=== PATIENT | male | born 1960 | race Caucasian/White ===

== ENCOUNTER → 2020-07-06 | Outpatient (CLI) | payer OTHER ==
[~2020-07-06] MED LIST: ALBU.083IS IH; ALBU90OI INH; ASPI325 PO; ATEN25 PO; CYCL10 PO; DOXY100 PO; FLUSAL2505 IH; HYDACE5 PO; IBUP400 PO; METHADONE; NAPR500 PO; OXYC5 PO; PRED20 PO; PROM25 PO; PROM25S PR; RXONDA4ODT MM
[2020-07-08 11:40] LABS: Antinuclear Antibody Screen Negative (Negative)
[2020-07-08 13:11] LABS: LYME IGG/IGM AB <0.91 ISR (0.00-0.90)
== END | disposition home or self-care (01) ==
LOC: LAB EV 14:32 → LAB SHORT 14:32
PROVIDERS: Physician Assistant Medical
DX: M25.50 Pain in unspecified joint (principal)
CPT/HCPCS: 85651; 86038; 86140; 86618

== ENCOUNTER 2023-07-05 19:28 | Inpatient (IN) | payer OTHER ==
[~2023-07-05] VITALS: Ht 175.3 cm; Wt 90.3 kg
[~2023-07-05 19:28] MED LIST changes: -ALBU90OI6 INH; -DOLOPHINE HCL10 MG PO; -LISI20 PO; -LYRICA100 M1 PT; -METH10; -PREG100; -Prednisone10 MG PO; -TAMS.4ER PO
[2023-07-05 21:46] LABS: Source, Urine Clean Catch
[2023-07-05 22:05] LABS: Appearance, Urine Clear (Clear); Bilirubin, Urine Neg (Neg); Blood, Urine Neg (Neg); Color, Urine Yellow (P-Yellow); Glucose Qualitative, Urine Neg (Neg); Ketones, Urine Neg (Neg); Leukocyte Esterase, Urine 1+ (Neg); Nitrite, Urine Neg (Neg); Protein, Urine 2+ (Neg); Specific Gravity, Urine 1.025 (1.003-1.022); Urobilinogen, Urine NORM (Normal)
[2023-07-05 22:07] LABS: Bacteria Not Seen /hpf; Hyaline Casts 25-50 /lpf (0-2); Red Blood Cells, Urine Not Seen /hpf (0-2); Squamous Epithelial Cells Not Seen /hpf (Few); White Blood Cells, Urine 0-2 /hpf (0-5)
[2023-07-05 22:09] LABS: U Amphetamine Screen Not Detected; U Barbituate Screen Not Detected; U Benzodiazapine Screen Not Detected; U Buprenorphine Screen Not Detected; U Cannabinoids Screen Not Detected; U Cocaine Screen Not Detected; U Methadone Screen DETECTED; U Methamphetamine Screen Not Detected; U Opiates Screen Not Detected; U Oxycodone Screen Not Detected; U Phencyclidine Screen Not Detected; U Propoxyphene Screen Not Detected
[2023-07-06 04:08] VITALS: BP 104/59
--- NOTE | 2023-07-06 04:17 | NUR ---
ER ADMIT 0350: RECEIVED REPORT FROM AUTO SUSPENSION AND STEERING MECHANIC. 0405: RECEIVED PT FROM ER VIA W/C. PT PLACED SELF ON BED. VS OBTAINED. VSS. 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 SET PT UP FOR SHOWER. PT SHOWERED. IS A&O X 4. PLEASANT & COOPERATIVE WITH ALL CARE. IS STEADY & STRONG ON HIS FEET. ADMIT DONE.
--- NOTE | 2023-07-06 05:38 | NUR ---
SHIFT SUMMARY HAS RESTED QUIETLY SINCE ADMISSION WITH EYES CLOSED, RESP EVEN & UNLABORED. LR INFUSING PER MD ORDER. DENIES COMPLAINTS. IS PLEASANT & COOPERATIVE WITH ALL CARE. BED IN LOW POSITION, CALL LIGHT WITHIN REACH.
[2023-07-06 07:00] LABS: Bun/Creatinine Ratio 19.2 (12.0-20.0); Calcium, Blood 8.9 mg/dL (8.5-10.1); Creatinine, Blood 3.91 mg/dL (0.60-1.20); Potassium, Blood 3.7 mmol/L (3.5-5.5)
[2023-07-06 07:11] VITALS: BP 105/63
[2023-07-06] MEDS ORDERED: ALBU90OI6 INH (09:22)
[2023-07-06] MEDS ORDERED: Prednisone10 MG PO (09:24)
[2023-07-06] MEDS ORDERED: LISI20 PO (09:26)
--- NOTE | 2023-07-06 11:00 | NUR ---
PATIENT FEELING THE NEED TO URINATE EVEN AFTER URINATION. 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 STATES HE THINKS HE GOT HEAT STROKE OR SOMETHING 2 WEEKS AGO AND THATS WHEN HIS CRAMPS IN HIS LEGS AND CHEST STARTED BUT HAVE BEEN WORSENING OVER PAST 2 WEEKS. DRINKS LOTS OF WATER WHILE WORKING. STARTED AT SALT, POTASSIUM SUPPLEMENT LAST WEEK DUE TO ALL THE SWEATING. STATES HIS SHIRT WILL BE COVERED IN WHITE STUFF AFTER WORKING AND SWEATING ALL DAY AND WHEN THE SWEAT DRIES. PATIENT WITH CONTINUED CRAMPING IN LEGS TODAY
[2023-07-06 15:35] VITALS: BP 109/63
[2023-07-06] MEDS ORDERED: PREG100 (16:47)
[2023-07-06] MEDS ORDERED: LYRICA100 M1 PT (16:48)
[2023-07-06] MEDS ORDERED: METH10 (16:55)
[2023-07-06] MEDS ORDERED: DOLOPHINE HCL10 MG PO (16:57)
[2023-07-06 19:26] VITALS: BP 143/91
--- NOTE | 2023-07-06 20:01 | NUR ---
MD CALL MR JOHNSTON IS PACING, C/O ANXIETY, REQUESTING ANXIETY MEDICATION. C/O FEELING LIKE HE WANTS TO THROW UP DESPITE RECENT ZOFRAN. 02/08 RLQ PAIN FOR MORE THAN A WEEK. DR COTE CALLED AND NOTIFIED. ORDER FOR HYDROXYZINE 25MG PO Q6HRS PRN ANXIETY AND OK TO GIVE MOM READ BACK AND ENTERED INTO [facility].
--- NOTE | 2023-07-06 20:06 | NUR ---
SHIFT SUMMARY PATIENT WITH LEG CRAMPS THROUGHOUT SHIFT, STATES LESSENING THROUGHOUT DAY. C/O NAUSEA AT END OF SHIFT AFTER PATIENT ATTEMPTET TO WALK THE UPSTAIRS UNIT. STATES HE FEELS FULL AND NAUSEOUS, ZOFRAN GIVEN WITH LITTLE EFFECT AT 1935.
--- NOTE | 2023-07-06 22:08 | NUR ---
MD CALL MR JOHNSTON CONTINUES TO C/O ANXIETY AND RESTLESSNESS. HE SAID HE TAKES TRAZADONE 50MG PO QHS AT HOME, THIS IS ON HIS MED LIST HIS BROUGHT IN. DR CHAVEZ CALLED AND T.O. RECIEVED FOR TRAZADONE 50MG PO X1. READ BACK DONE AND ORDER ENTERED INTO [employer].
--- NOTE | 2023-07-06 22:42 | NUR ---
RN NOTE PT GIVEN 50MG PO TRAZADONE. PT SAID THAT HIS BROUGHT HIM IN A BOTTLE OF 5 PILLS MIXED OF TRAZADONE AND VALIUM. HE DENIED THAT HE HAD TAKEN ANY MEDICATIONS OF HIS OWN. I INFORMED HIM THAT PATIENTS ARE NOT TO TAKE THEIR OWN MEDS OR KEEP THEIR OWN MEDICATIONS WITH THEM WHILE THEY ARE HOSPITALISED. WITH PT CONSENT I TOOK THE BOTTLE OF 5 PILLS MARKED VALIUM OVER TO THE PHARMACY AND GAVE THEM TO [facility]. AWAITING RECEIPT TO BE PUT INTO THE CHART.
--- NOTE | 2023-07-07 01:17 | NUR ---
RN NOTE PT EDUCATED RE IGNITION SOURCES AND RISK FOR INJURY WHEN OXYGEN IS IN USE. HE DENIED SMOKING, DENIES HAVING IGNITION SOURCES, VERBALISED UNDERSTANDING. REASSESSMENT ON NURSING ROUNDS. HE APPEARS TO BE SLEEPING NOW AFTER C/O ANXIETY EARLIER. BED LOW, CALL LIGHT IN REACH.
--- NOTE | 2023-07-07 02:03 | NUR ---
RN NOTE CALL FROM [employer] TO NOTIFY OF PEAKED T WAVES, ON REVIEW FROM [facility] THEY HAVE BEEN PEAKED SINCE 8-9PM. DR PAIZ NOTIFIED. NO NEW ORDERS.
--- NOTE | 2023-07-07 04:55 | NUR ---
SHIFT SUMMARY MR JOHNSTON HAD A LOT OF ANXIETY AND C/O FEELING VERY RESTLESS AT THE BEGINNING OF THE SHIFT BUT SINCE TRAZADONE HE APPEARS TO HAVE BEEN SLEEPING WELL. HE WAS C/O ABDOMINAL FULLNESS AND DISCOMFORT EARLY IN THE SHIFT. ON TELEMETRY IN SR WITH PEAKED T WAVES THAT STARTED AT 8-9PM ACCORDING TO RA VIBRATION ENGINEER. NO FURTHER CALLS FROM VIBRATION ENGINEER. BED LOW, CALL LIGHT IN REACH. PT INDEPENDENT TO BATHROOM AND VOIDING WELL.
[2023-07-07 05:30] VITALS: BP 119/76
[2023-07-07 05:46] LABS: BASOPHILS ABSOLUTE AUTO 0.02 K/mm3 (0.00-0.23); BASOPHILS PERCENT AUTO 0 % (0-2); EOSINOPHILS PERCENT AUTO 2 % (0-6); Hematocrit 40.8 % (37.0-53.0); Hemoglobin 14.4 g/dL (13.5-17.5); IMMATURE GRAN ABSOLUTE AUTO 0.01 K/mm3 (0.00-0.10); IMMATURE GRAN PERCENT AUTO 0 % (0-1); LYMPHOCYTES ABSOLUTE AUTO 1.23 K/mm3 (0.84-5.20); LYMPHOCYTES PERCENT AUTO 20 % (21-46); MONOCYTES ABSOLUTE AUTO 0.53 K/mm3 (0.16-1.47); MONOCYTES PERCENT AUTO 9 % (4-13); Mean Corpuscular HGB 31.8 pg (26.0-34.0); Mean Corpuscular HGB Conc 35.3 g/dL (31.5-36.5); Mean Corpuscular Volume 90 fL (80-100); NEUTROPHILS ABSOLUTE AUTO 4.19 K/mm3 (1.96-9.15); NEUTROPHILS PERCENT AUTO 69 % (41-73); Platelet Count 181 K/mm3 (150-400); RDW Standard Deviation 42.6 fL (35.1-46.3); Red Blood Cell Count 4.53 M/mm3 (4.30-5.90); White Blood Cell Count 6.08 K/mm3 (4.00-11.30)
[2023-07-07 06:07] LABS: Bun/Creatinine Ratio 29.2 (12.0-20.0); Calcium, Blood 8.5 mg/dL (8.5-10.1); Creatinine, Blood 1.61 mg/dL (0.60-1.20)
[2023-07-07 07:51] VITALS: BP 121/82
[2023-07-07 15:46] VITALS: BP 116/74
--- NOTE | 2023-07-07 15:51 | NUR ---
SHIFT SUMMARY: PATIENT A&OX4. CALM, PLEASANT AND COOPERATIVE c CARE. PATIENT DENIES LEG CRAMPS, N/V, CP/PRESSURE, AND SOB THIS SHIFT. PATIENT REPORTS "I HAD CRAMPS TO MY BOTH HANDS AND LEGS YESTERDAY, BUT TODAY I DID NOT HAVE ANY AND I'M FEELING A LOT BETTER." ON TELE, SR HR IN THE HIGH 60'S BPM. RA c SPO2 RANGES 96-97%. PATIENT HAS BEEN AMBULATING TO BATHROOM AND HALLWAYS INDEPENDENTLY T/O SHIFT. EATING AND DRINKING WELL. RECEIVED SCHEDULED MEDS PER EMAR. PIV TO L WRIST INFUSING NS AT 175 MLS/HR. PIV TO RAC SALINE LOCKED. VITAL SIGNS REVIEWED. CALL LIGHT IN REACH. PATIENT EDUCATED ON NON SMOKING POLICY, RISK OF INJURY AND IGNITION SOURCES WHEN O2 IN USE. PATIENT DENIES SMOKING AND VERBALIZED UNDERSTANDING.
[2023-07-07 20:33] VITALS: BP 141/81
[2023-07-08 05:24] LABS: BASOPHILS ABSOLUTE AUTO 0.04 K/mm3 (0.00-0.23); BASOPHILS PERCENT AUTO 1 % (0-2); EOSINOPHILS ABSOLUTE AUTO 0.26 K/mm3 (0.00-0.68); EOSINOPHILS PERCENT AUTO 5 % (0-6); Hematocrit 37.9 % (37.0-53.0); Hemoglobin 12.6 g/dL (13.5-17.5); IMMATURE GRAN ABSOLUTE AUTO 0.01 K/mm3 (0.00-0.10); IMMATURE GRAN PERCENT AUTO 0 % (0-1); LYMPHOCYTES ABSOLUTE AUTO 2.14 K/mm3 (0.84-5.20); LYMPHOCYTES PERCENT AUTO 44 % (21-46); MONOCYTES PERCENT AUTO 10 % (4-13); Mean Corpuscular HGB 31.3 pg (26.0-34.0); Mean Corpuscular HGB Conc 33.2 g/dL (31.5-36.5); Mean Corpuscular Volume 94 fL (80-100); Mean Platelet Volume 9.6 fL (9.1-12.4); NEUTROPHILS ABSOLUTE AUTO 1.89 K/mm3 (1.96-9.15); NEUTROPHILS PERCENT AUTO 39 % (41-73); Platelet Count 161 K/mm3 (150-400); RDW Coefficient Variation 13.1 % (11.7-14.2); RDW Standard Deviation 45.1 fL (35.1-46.3); Red Blood Cell Count 4.02 M/mm3 (4.30-5.90); White Blood Cell Count 4.84 K/mm3 (4.00-11.30)
[2023-07-08 05:33] VITALS: BP 145/88
[2023-07-08 05:43] LABS: Bun/Creatinine Ratio 25.2 (12.0-20.0); Calcium, Blood 7.9 mg/dL (8.5-10.1); Creatinine, Blood 1.23 mg/dL (0.60-1.20); Potassium, Blood 5.3 mmol/L (3.5-5.5)
--- NOTE | 2023-07-08 06:35 | NUR ---
SHIFT SUMMARY NO C/O PAIN, PRN ATARAX GIVEN WITH NIGHT TIME MEDS PER PATIENT REQUEST. PT SLEPT. Q1H FIRE SAFETY CHECKS COMPLETED NO SOURCES OF IGNITION FOUND
[2023-07-08 07:17] VITALS: BP 121/80
[2023-07-08] MEDS ORDERED: TAMS.4ER PO (12:56)
--- NOTE | 2023-07-08 13:29 | NUR ---
DISCHARGE MAYRA A&OX4, INDEPENDENT, COOPERATIVE WITH CARE. NO ACUTE CHANGES THIS SHIFT. SOURCES OF IGNITION ASSESS AND REVIEWED WITH PATIENT. DISCAHRGE PACKET REVIEWED. DENIED ANY QUESTIONS OR CONCERNS. REFUSED WHEELCHAIR ESCORT OUT AND DISCHARGED AT 1330.
== END 2023-07-08 13:28 | disposition home or self-care (01) | DRG 683 ==
LOC: ER 19:28 → MEDS 21:56 → ERHOLD 21:56 → MEDS 21:56 → ENPENDDIS 07-08 12:19 → MEDS 07-08 13:28
PROVIDERS: Internal Medicine; Physician Assistant; Student in an Organized Health Care Education/Training Program; ADMIT Internal Medicine
DX: N17.9 Acute kidney failure, unspecified (principal); E87.1 Hypo-osmolality and hyponatremia; F11.90 Opioid use, unspecified, uncomplicated; J45.909 Unspecified asthma, uncomplicated; M35.3 Polymyalgia rheumatica; R73.03 Prediabetes; E03.8 Other specified hypothyroidism; D64.9 Anemia, unspecified; I10 Essential (primary) hypertension; Z88.0 Allergy status to penicillin; Z88.8 Allergy status to other drugs, medicaments and biological substances; Z79.82 Long term (current) use of aspirin; Z79.899 Other long term (current) drug therapy; Z87.891 Personal history of nicotine dependence; Z98.890 Other specified postprocedural states
CPT/HCPCS: 36415; 51701; 51798; 76770; 80048; 81001; 82570; 84300; 84540; 85025; 93005; 93010; 94640; 94664; 94760; 99284-25; A9270; J1644; J2405; J7030; J7120; J7512

== ENCOUNTER → 2023-07-05 | Outpatient (CLI) | payer OTHER ==
[~2023-07-05] MED LIST changes: +ALBU90OI6 INH; +DOLOPHINE HCL10 MG PO; +LISI20 PO; +LYRICA100 M1 PT; +METH10; +PREG100; +Prednisone10 MG PO; +TAMS.4ER PO
[2023-07-05 18:51] LABS: BASOPHILS ABSOLUTE AUTO 0.05 K/mm3 (0.00-0.23); BASOPHILS PERCENT AUTO 1 % (0-2); EOSINOPHILS ABSOLUTE AUTO 0.04 K/mm3 (0.00-0.68); EOSINOPHILS PERCENT AUTO 0 % (0-6); Hematocrit 46.2 % (37.0-53.0); Hemoglobin 16.4 g/dL (13.5-17.5); IMMATURE GRAN ABSOLUTE AUTO 0.05 K/mm3 (0.00-0.10); IMMATURE GRAN PERCENT AUTO 1 % (0-1); LYMPHOCYTES PERCENT AUTO 16 % (21-46); MONOCYTES ABSOLUTE AUTO 0.97 K/mm3 (0.16-1.47); MONOCYTES PERCENT AUTO 9 % (4-13); Mean Corpuscular HGB 31.8 pg (26.0-34.0); Mean Corpuscular HGB Conc 35.5 g/dL (31.5-36.5); Mean Corpuscular Volume 90 fL (80-100); Mean Platelet Volume 9.7 fL (9.1-12.4); NEUTROPHILS ABSOLUTE AUTO 8.19 K/mm3 (1.96-9.15); NEUTROPHILS PERCENT AUTO 74 % (41-73); Platelet Count 217 K/mm3 (150-400); RDW Coefficient Variation 13.3 % (11.7-14.2); RDW Standard Deviation 43.3 fL (35.1-46.3); Red Blood Cell Count 5.16 M/mm3 (4.30-5.90)
[2023-07-05 19:09] LABS: Bun/Creatinine Ratio 13.1 (12.0-20.0); Calcium, Blood 9.5 mg/dL (8.5-10.1); Creatinine, Blood 5.33 mg/dL (0.60-1.20); Potassium, Blood 5.4 mmol/L (3.5-5.5)
== END | disposition home or self-care (01) ==
LOC: LAB SHORT 18:47
PROVIDERS: Physician Assistant
DX: R53.83 Other fatigue (principal)
CPT/HCPCS: 80048; 85025

== ENCOUNTER 2023-11-02 18:55 | Inpatient (IN) | payer OTHER ==
[~2023-11-02] VITALS: Ht 175.3 cm; Wt 90.7 kg
[~2023-11-02 18:55] MED LIST changes: +ALBU90OI6 INH; +DOLOPHINE HCL10 MG PO; +LISI20 PO; +LYRICA100 M1 PT; +METH10; +PREG100; +Prednisone10 MG PO; +TAMS.4ER PO
[2023-11-02 19:18] LABS: BASOPHILS ABSOLUTE AUTO 0.03 K/mm3 (0.00-0.23); BASOPHILS PERCENT AUTO 0 % (0-2); EOSINOPHILS ABSOLUTE AUTO 0.27 K/mm3 (0.00-0.68); EOSINOPHILS PERCENT AUTO 3 % (0-6); Hemoglobin 15.7 g/dL (13.5-17.5); IMMATURE GRAN ABSOLUTE AUTO 0.03 K/mm3 (0.00-0.10); IMMATURE GRAN PERCENT AUTO 0 % (0-1); LYMPHOCYTES ABSOLUTE AUTO 1.37 K/mm3 (0.84-5.20); LYMPHOCYTES PERCENT AUTO 13 % (21-46); MONOCYTES ABSOLUTE AUTO 0.74 K/mm3 (0.16-1.47); MONOCYTES PERCENT AUTO 7 % (4-13); Mean Corpuscular HGB 31.2 pg (26.0-34.0); Mean Corpuscular HGB Conc 34.1 g/dL (31.5-36.5); Mean Corpuscular Volume 91 fL (80-100); Mean Platelet Volume 9.9 fL (9.1-12.4); NEUTROPHILS ABSOLUTE AUTO 8.01 K/mm3 (1.96-9.15); NEUTROPHILS PERCENT AUTO 77 % (41-73); Platelet Count 204 K/mm3 (150-400); RDW Coefficient Variation 11.9 % (11.7-14.2); Red Blood Cell Count 5.04 M/mm3 (4.30-5.90); White Blood Cell Count 10.45 K/mm3 (4.00-11.30)
[2023-11-02 19:23] LABS: Source, Urine Clean Catch
[2023-11-02 19:27] LABS: Appearance, Urine Clear (Clear); Bilirubin, Urine Neg (Neg); Blood, Urine Neg (Neg); Color, Urine Yellow (P-Yellow); Glucose Qualitative, Urine Neg (Neg); Ketones, Urine Neg (Neg); Leukocyte Esterase, Urine 1+ (Neg); Nitrite, Urine Neg (Neg); Protein, Urine Neg (Neg); Specific Gravity, Urine 1.015 (1.003-1.022); Urobilinogen, Urine 1+ (Normal)
[2023-11-02 19:41] LABS: Albumin, Blood 3.8 g/dL (3.4-5.0); Albumin/Globulin Ratio 1.1 (0.8-1.8); Bilirubin, Total 1.7 mg/dL (0.1-1.0); Globulin, Blood 3.4 g/dL (2.2-4.0); Potassium, Blood 4.1 mmol/L (3.5-5.5); Total Protein, Blood 7.2 g/dL (6.4-8.2)
[2023-11-02 19:43] LABS: Red Blood Cells, Urine 0-2 /hpf (0-2); White Blood Cells, Urine 0-2 /hpf (0-5)
[2023-11-02 19:44] LABS: Bacteria Few /hpf; Squamous Epithelial Cells Few /hpf (Few)
[2023-11-02] MEDS ORDERED: METHADONE HCL1010 (21:06)
[2023-11-03] MEDS ORDERED: TRAZ50 PO (02:13)
[2023-11-03 02:40] VITALS: BP 138/96
--- NOTE | 2023-11-03 05:03 | NUR ---
TESSY ARRIVED FROM THE ED AROUND 0235. HE WAS ALERT AND FULLY ORIENTED AND ABLE TO TRANSFER HIMSELF FROM WHEELCHAIR TO BED. HERE FOR PANCREATITIS / ABD PAIN. PT HAS SEVERE PAIN IN ABD THAT IS DIFFICULT TO MANAGE AT THIS TIME. HE HAS Q4 FENTANYL 50MIC. PT IS OPOID TOLERANT AND WILL LIKELY NEED FURTHER PAIN MANAGEMENT, WILL CONTINUE TO MONITOR AND CONTACT HOSPITALIST IF NECESSARY FOR FURTHER PAIN MANAGEMENT OPTIONS. PT IS INDEPENDENT IN ROOM, RESTING IN BED AT A LOW POSITION WITH CALL LIGHT IN REACH.
[2023-11-03 05:45] LABS: BASOPHILS ABSOLUTE AUTO 0.03 K/mm3 (0.00-0.23); BASOPHILS PERCENT AUTO 0 % (0-2); EOSINOPHILS PERCENT AUTO 3 % (0-6); Hematocrit 41.2 % (37.0-53.0); Hemoglobin 13.9 g/dL (13.5-17.5); IMMATURE GRAN ABSOLUTE AUTO 0.01 K/mm3 (0.00-0.10); IMMATURE GRAN PERCENT AUTO 0 % (0-1); LYMPHOCYTES PERCENT AUTO 14 % (21-46); MONOCYTES PERCENT AUTO 8 % (4-13); Mean Corpuscular HGB 31.1 pg (26.0-34.0); Mean Corpuscular HGB Conc 33.7 g/dL (31.5-36.5); Mean Corpuscular Volume 92 fL (80-100); Mean Platelet Volume 10.2 fL (9.1-12.4); NEUTROPHILS ABSOLUTE AUTO 5.43 K/mm3 (1.96-9.15); NEUTROPHILS PERCENT AUTO 75 % (41-73); Platelet Count 156 K/mm3 (150-400); RDW Standard Deviation 40.2 fL (35.1-46.3); Red Blood Cell Count 4.47 M/mm3 (4.30-5.90); White Blood Cell Count 7.27 K/mm3 (4.00-11.30)
[2023-11-03 06:30] LABS: CHOL/HDL RATIO 1.8; Cholesterol 150 mg/dL (50-200); HDL Cholesterol 83 mg/dL (>39); LDL/HDL RATIO 0.6; Low Density Lipoprotein Chol 51 mg/dL (0-110); Triglycerides 80 mg/dL (30-160); Very Low Density Lipoprot Chol 16 mg/dL (6-32)
[2023-11-03 06:39] LABS: Albumin, Blood 3.2 g/dL (3.4-5.0); Albumin/Globulin Ratio 1.2 (0.8-1.8); Bilirubin, Total 2.6 mg/dL (0.1-1.0); Bun/Creatinine Ratio 10.8 (12.0-20.0); Calcium, Blood 8.6 mg/dL (8.5-10.1); Creatinine, Blood 1.02 mg/dL (0.60-1.20); Globulin, Blood 2.7 g/dL (2.2-4.0); Potassium, Blood 3.8 mmol/L (3.5-5.5); Total Protein, Blood 5.9 g/dL (6.4-8.2)
[2023-11-03 07:17] VITALS: BP 128/80
[2023-11-03 15:24] VITALS: BP 129/84
--- NOTE | 2023-11-03 17:41 | NUR ---
SHIFT SUMMARY PT A&OX4, VSS, AMB IND, NPO, PAIN MANAGED W/ DILAUDID, NAUSEA MANAGED W/ ZOFRAN, D5LR INFUSING @125, AND VOIDING VERY LITTLE CARLOS COLORED URINE. PT REQUESTED/DENIED PO MEDS INCLUDING METHADONE AND LOVENOX, ADMITS TO GI UPSET W/ PO MEDS. MRI AND LABS ORDERED THIS SHIFT TO RULE OUT OBSTRUCTION AND VIRAL HEPATITIS. MRI SHOWED NO OBSRUCTION. CALL LIGHT IS WITHIN REACH AND PT ABLE TO MAKE NEEDS KNOWN.
[2023-11-03 20:30] VITALS: BP 148/77
[2023-11-04 03:14] VITALS: BP 158/130
--- NOTE | 2023-11-04 04:46 | NUR ---
SHIFT SUMMARY TESSY IS ALERT AND FULLY ORIENTED ON ASSESSMENT. PRIMARY PT COMPLAINTS TONIGHT ARE PAIN AND NAUSEA / VOMITTING. PAIN MANAGED WITH Q4 PRN DILAUDED, AT THIS INTERVAL OF COVERAGE PT HAS ABOUT AN HOUR OF UNMANAGED PAIN BETWEEN DOSES, WILL CONTINUE TO MONITOR AND PERFORM APPROPRIATE INTERVENTIONS. PT WAS VERY NAUSEOUS ALL NIGHT TONIGHT, AND HAD MULTPLE EPISODES OF EMESIS (GREEN LIQUID BILE) . DR FALLON CONTACTED, ORDER FOR REGLAN RECIEVED AND ADMINISTERED. PT IN BED AT LOW POSITION, CALL LIGHT IN REACH.
[2023-11-04 05:59] LABS: Albumin, Blood 3.3 g/dL (3.4-5.0); Albumin/Globulin Ratio 1.1 (0.8-1.8); Bilirubin, Total 4.3 mg/dL (0.1-1.0); Bun/Creatinine Ratio 9.2 (12.0-20.0); Calcium, Blood 8.6 mg/dL (8.5-10.1); Creatinine, Blood 0.98 mg/dL (0.60-1.20); Globulin, Blood 3.1 g/dL (2.2-4.0); Potassium, Blood 3.9 mmol/L (3.5-5.5); Total Protein, Blood 6.4 g/dL (6.4-8.2)
[2023-11-04 06:26] VITALS: BP 166/88
[2023-11-04 07:28] VITALS: BP 134/78
--- NOTE | 2023-11-04 09:46 | NUR ---
CALLED DR ESTRELLA- PT C/O PAIN RISING UP TO NEARLY 9/10 AGAIN IN THE ABDOMEN. DILAUDID Q4 NOT AVAILABLE FOR ANOTHER HOUR. PT HAS Hx OF METHADONE, HOWEVER D/T NAUSEA HE IS NOT ABLE TO TAKE IT AND REQUESTED THAT THE MD DC IT UNTIL HE IS ABLE TO TOLLERATE PO. PT HAS BEEN RECIEVING DILAUDID 2MG Q4, BUT IT WEARS OFF TOO SOON. NEW ORDER RECIEVED FOR DILAUDID 2-3MG IV Q3.
[2023-11-04 16:30] VITALS: BP 132/82
--- NOTE | 2023-11-04 18:06 | NUR ---
SHIFT SUMMARY- PT ADMITTED WITH ACUTE PANCREATITIS. PT TAKES METHADONE AT BASELINE AND HAS A HIGHER TOLLERANCE FOR PAIN MEDICATION. 2MG IV DLIAUDID Q4 WAS NOT FREQUENT ENOUGH (PER PT). SPOKE TO DR ESTRELLA AND RECIEVED AN INCREASE 2-3MG IV Q3. PT HAS BEEN RECIEVING THE MEDS EVERY THREE HOURS. VISUALLY THE PT APPEARS MORE COMFORTABLE, HOWEVER HIS PAIN RATING IS STILL THE SAME. THE CURRENT REGIMEN OF 2MG IV Q3 OF DILAUDID SEEMS TO MANAGE THE PT PAIN AT THIS TIME. NAUSEA HAS IMPROVED THE DAY PROGRESSED. PT RAC IV BECAME VERY POSITIONAL AT THE END OF THE SHIFT. 20G PLACED IN THE LFA FOR CONTINUIOUS INFUSION OF FLUIDS (RATE WAS INCREASED TODAY). PT IN BED CALL LIGHT IN REACH NO S&S OF DISTRESS NOTED. PT DID GET UP AND GO FOR A WALK IN THE BLOOM THIS EVENING. HE SEEMED TO TOLLERATE IT WELL.
[2023-11-04 19:23] VITALS: BP 155/91
[2023-11-05 04:40] VITALS: BP 138/88
[2023-11-05 05:41] LABS: BASOPHILS ABSOLUTE AUTO 0.03 K/mm3 (0.00-0.23); BASOPHILS PERCENT AUTO 0 % (0-2); EOSINOPHILS ABSOLUTE AUTO 0.72 K/mm3 (0.00-0.68); EOSINOPHILS PERCENT AUTO 10 % (0-6); Hematocrit 38.5 % (37.0-53.0); IMMATURE GRAN ABSOLUTE AUTO 0.02 K/mm3 (0.00-0.10); IMMATURE GRAN PERCENT AUTO 0 % (0-1); LYMPHOCYTES ABSOLUTE AUTO 1.01 K/mm3 (0.84-5.20); LYMPHOCYTES PERCENT AUTO 13 % (21-46); MONOCYTES ABSOLUTE AUTO 0.85 K/mm3 (0.16-1.47); MONOCYTES PERCENT AUTO 11 % (4-13); Mean Corpuscular HGB Conc 33.8 g/dL (31.5-36.5); Mean Corpuscular Volume 92 fL (80-100); Mean Platelet Volume 10.3 fL (9.1-12.4); NEUTROPHILS ABSOLUTE AUTO 4.92 K/mm3 (1.96-9.15); NEUTROPHILS PERCENT AUTO 65 % (41-73); Platelet Count 141 K/mm3 (150-400); RDW Coefficient Variation 12.1 % (11.7-14.2); RDW Standard Deviation 40.5 fL (35.1-46.3); Red Blood Cell Count 4.19 M/mm3 (4.30-5.90); White Blood Cell Count 7.55 K/mm3 (4.00-11.30)
[2023-11-05 06:16] LABS: Albumin/Globulin Ratio 0.9 (0.8-1.8); Bun/Creatinine Ratio 6.5 (12.0-20.0); Calcium, Blood 8.6 mg/dL (8.5-10.1); Creatinine, Blood 0.78 mg/dL (0.60-1.20); Globulin, Blood 3.3 g/dL (2.2-4.0); Potassium, Blood 3.9 mmol/L (3.5-5.5); Total Protein, Blood 6.3 g/dL (6.4-8.2)
[2023-11-05 07:23] VITALS: BP 120/85
--- NOTE | 2023-11-05 08:01 | NUR ---
SHIFT SUMMARY PT IS A&OX4, VSS ON ROOM AIR. NO ACUTE CHANGES OVER NOC. PT C/O ABD PAIN THAT RADIATES BETWEEN HIS SHOULDER BLADES 8-10/10. PT REQUESTING 2MG IV DILAUDID Q3, DECREASES PAIN TO 7/10. WAS NAUSEATED, ZOFRAN GIVEN, BUT THEN THE PT CONTINUED TO MAKE HIMSELF VOMIT, STATED IT MADE HIM FEEL BETTER. ONLY SMALL AMOUNT OF BILE. UP INDEPENDENT TO BR. VOIDING ADEQUATE AMOUNTS OF YELLOW URINE. NO BM THIS SHIFT. REVA REMAINS NPO. BED IN LOWEST POSITION, CALL LIGHT WITHIN REACH. FIRE SAFETY CHECKS COMPLETED
[2023-11-05 13:47] LABS: HEPATITIS A ANTIBODY, IGM Negative (Negative); HEPATITIS B CORE ANTIBODY, IGM Negative (Negative); HEPATITIS B SURFACE ANTIGEN Negative (Negative); HEPATITIS C AB CIA INTERP Negative (Negative); HEPATITIS C ANTIBODY CIA INDEX 0.04 IV
[2023-11-05 15:15] VITALS: BP 151/94
--- NOTE | 2023-11-05 16:22 | NUR ---
NOTE CALLED INTO ROOM AT 1440. PT YELLED," HOW DARE YOU TAKE A LUNCH WHEN I NEEDED PAIN MEDICATION." PT HAD NOT CALLED FOR DILAUDID PRIOR TO CHECK OUT TO [facility]. RE EDUCATED PT THAT HIS DILAUDID IS NOT SCHEDULED AND HE NEEDS TO CALL. OFFERED DILAUDID 1MG. HE HAD ALREADY RECEIVED 2MG AT 1424 FROM [facility]. CONTINUE POC.
--- NOTE | 2023-11-05 16:26 | NUR ---
NOTE PT RESTING. NPO. ORAL CARE KIT PROVIDED. PT UP AD ELISA. VOIDING PER URINAL. ABD LARGE, ROUND, FIRM. PT PASSING FLATUS. DILAUDID IV GIVEN PER ORDER. VSS. AT BEDSIDE. CONTINUE CARE.
[2023-11-05 20:00] VITALS: BP 164/84
[2023-11-06 05:02] VITALS: BP 154/90
[2023-11-06 05:22] LABS: BASOPHILS ABSOLUTE AUTO 0.04 K/mm3 (0.00-0.23); BASOPHILS PERCENT AUTO 1 % (0-2); EOSINOPHILS ABSOLUTE AUTO 0.92 K/mm3 (0.00-0.68); EOSINOPHILS PERCENT AUTO 13 % (0-6); Hematocrit 39.6 % (37.0-53.0); Hemoglobin 13.2 g/dL (13.5-17.5); IMMATURE GRAN ABSOLUTE AUTO 0.02 K/mm3 (0.00-0.10); IMMATURE GRAN PERCENT AUTO 0 % (0-1); LYMPHOCYTES ABSOLUTE AUTO 1.07 K/mm3 (0.84-5.20); LYMPHOCYTES PERCENT AUTO 15 % (21-46); MONOCYTES ABSOLUTE AUTO 0.78 K/mm3 (0.16-1.47); MONOCYTES PERCENT AUTO 11 % (4-13); Mean Corpuscular HGB 31.1 pg (26.0-34.0); Mean Corpuscular HGB Conc 33.3 g/dL (31.5-36.5); Mean Corpuscular Volume 93 fL (80-100); Mean Platelet Volume 10.6 fL (9.1-12.4); NEUTROPHILS ABSOLUTE AUTO 4.46 K/mm3 (1.96-9.15); NEUTROPHILS PERCENT AUTO 61 % (41-73); Platelet Count 157 K/mm3 (150-400); RDW Coefficient Variation 12.1 % (11.7-14.2); RDW Standard Deviation 41.4 fL (35.1-46.3); Red Blood Cell Count 4.25 M/mm3 (4.30-5.90); White Blood Cell Count 7.29 K/mm3 (4.00-11.30)
[2023-11-06 05:39] LABS: Albumin, Blood 2.9 g/dL (3.4-5.0); Albumin/Globulin Ratio 0.8 (0.8-1.8); Bilirubin, Total 1.3 mg/dL (0.1-1.0); Bun/Creatinine Ratio 7.2 (12.0-20.0); Calcium, Blood 8.9 mg/dL (8.5-10.1); Creatinine, Blood 0.84 mg/dL (0.60-1.20); Globulin, Blood 3.6 g/dL (2.2-4.0); Potassium, Blood 3.9 mmol/L (3.5-5.5); Total Protein, Blood 6.5 g/dL (6.4-8.2)
--- NOTE | 2023-11-06 05:45 | NUR ---
SHIFT SUMMARY PATIENT IS ALERT AND ORIENTED. PATIENT HAS HAD NO ACUTE EVENTS THIS SHIFT. VITAL SIGNS REVIEWED. PATIENT HAS ADMITTED DIAGNOSIS OF PANCREATITIS. PATIENT REMAINS VERY PAINFUL AND IS GETTING CONSISTENT Q3 PAIN MEDICATION PER EMAR. PATIENT HAS NOT REPORTED AND SOB, NAUSEA OR VOMITTING THIS SHIFT. IV FLUIDS INFUSING ORDERED. PATIENT REMAINS NPO. BED IN LOCKED AND LOWEST POSITION. CALL LIGHT IN PLACE. WILL MONITOR UNTIL SHIFT CHANGE.
[2023-11-06 08:12] VITALS: BP 144/82
[2023-11-06 15:50] VITALS: BP 170/89
--- NOTE | 2023-11-06 20:10 | NUR ---
SHIFT SUMMARY: TESSY IS A&OX4. VSS, NO ACUTE EVENTS THIS SHIFT. PT DID HAVE AN ELEVATED SYSTOLIC BP THIS AFTERNOON, WHICH HE ATTRIBUTED TO PAIN. PT WAS MEDICATED PER MAR. HE HAS TOLERATED SOME CLEAR LIQUIDS TODAY BUT FELT THAT THEY DID INCREASE HIS PAIN AND NAUSEA. NAUSEA MEDICATED PER MAR. HE IS INDEPENDENT IN THE ROOM. IV TO BILATERAL ARMS PATENT, IV FLUIDS INFUSING. HE IS LYING IN BED WITH THE CALL LIGHT IN REACH. REPORT WAS GIVEN TO FOREST PATHOLOGY TEACHER RN.
[2023-11-07 04:14] VITALS: BP 161/86
--- NOTE | 2023-11-07 04:39 | NUR ---
SHIFT SUMMARY: PT IS ADMITTED PANCREATITIS AND IS A FULL CODE. IS ALERT AND ABLE TO MAKE NEEDS KNOWN. UP AD-ELISA WHILE IN HIS ROOM. HAVE GIVEN HIM PRN PAIN MANAGEMENT X3 THIS SHIFT. IV TO LEFT FOREARM IS PATENT AND INFUSING LR/D5 @ 150. WITH A DRESSING THAT IS CDI. REPORTS FREQUENT URINATION IN SMALL AMOUNTS BUT DENIES ANY OTHER SX OF UTI. STATED HE TAKES FLOMAX AT HOME BUT NOT FOUND ON HOSPITAL MED REVIEW.
[2023-11-07 05:18] LABS: BASOPHILS ABSOLUTE AUTO 0.07 K/mm3 (0.00-0.23); BASOPHILS PERCENT AUTO 1 % (0-2); EOSINOPHILS ABSOLUTE AUTO 0.87 K/mm3 (0.00-0.68); EOSINOPHILS PERCENT AUTO 14 % (0-6); Hematocrit 37.2 % (37.0-53.0); Hemoglobin 12.4 g/dL (13.5-17.5); IMMATURE GRAN ABSOLUTE AUTO 0.01 K/mm3 (0.00-0.10); IMMATURE GRAN PERCENT AUTO 0 % (0-1); LYMPHOCYTES ABSOLUTE AUTO 1.24 K/mm3 (0.84-5.20); LYMPHOCYTES PERCENT AUTO 20 % (21-46); MONOCYTES ABSOLUTE AUTO 0.72 K/mm3 (0.16-1.47); MONOCYTES PERCENT AUTO 12 % (4-13); Mean Corpuscular HGB 30.7 pg (26.0-34.0); Mean Corpuscular HGB Conc 33.3 g/dL (31.5-36.5); Mean Corpuscular Volume 92 fL (80-100); Mean Platelet Volume 10.1 fL (9.1-12.4); NEUTROPHILS PERCENT AUTO 53 % (41-73); Platelet Count 171 K/mm3 (150-400); RDW Coefficient Variation 11.9 % (11.7-14.2); RDW Standard Deviation 40.4 fL (35.1-46.3); Red Blood Cell Count 4.04 M/mm3 (4.30-5.90); White Blood Cell Count 6.21 K/mm3 (4.00-11.30)
[2023-11-07 06:10] LABS: Albumin, Blood 2.8 g/dL (3.4-5.0); Albumin/Globulin Ratio 0.8 (0.8-1.8); Bilirubin, Total 1.1 mg/dL (0.1-1.0); Bun/Creatinine Ratio 5.9 (12.0-20.0); Calcium, Blood 8.7 mg/dL (8.5-10.1); Creatinine, Blood 0.85 mg/dL (0.60-1.20); Globulin, Blood 3.5 g/dL (2.2-4.0); Potassium, Blood 3.6 mmol/L (3.5-5.5); Total Protein, Blood 6.3 g/dL (6.4-8.2)
[2023-11-07 08:04] VITALS: BP 140/80
[2023-11-07 15:45] VITALS: BP 180/94
[2023-11-07 15:46] VITALS: BP 180/94
--- NOTE | 2023-11-07 18:28 | NUR ---
AFTER BREAKFAST THIS AM, PT STATED THAT HE WISHES TO RETURN HOME AND THAT, PER HIS DISCUSSION WITH THE HOSPITALIST, HE WILL NOT BE DISCHARGED FROM THE HOSPITAL UNTIL HIS PAIN IS CONTROLLED ON ORAL MEDICATIONS, HE HAS A BOWEL MOVEMENT, AND HE IS ABLE TO TOLERATE FOOD. PT STATED THAT HE WOULD LIKE TO SWITCH TO TAKING THE OXYCODONE INSTEAD OF THE IV DILAUDID. ENCOURAGED PT TO ALERT THIS RN IF THE OXYCODONE WAS NOT EFFECTIVE IN CONTROLLING HIS PAIN. PT DID ALERT THIS RN THIS AFTERNOON THAT THE OXYCODONE WAS NOT CONTROLLING HIS PAIN EFFECTIVELY. DISCUSSED HOME MEDICATIONS WITH PT. PT STATED THAT HE TAKES METHADONE AT HOME "FOR LEG PAIN" WHICH HE THOUGHT HE SHOULD HAVE TALKED TO THE DOCTOR ABOUT WHEN DR WAS IN PT'S ROOM. THIS NURSE WROTE A NOTE ON PT'S WHITEBOARD TO ASSIST PT AND STAFF TO DISCUSS WITH THE HOSPITALIST. PT AGAIN STATED THAT HIS PAIN WAS POORLY CONTROLLED. THIS RN CALLED THE HOSPITALIST REGARING PT'S PAIN MANAGEMENT AND ELEVATED BLOOD PRESSURE. HOSPITALIST GAVE ORDER TO RESUME PT'S HOME REGIMEN OF METHADONE AND DISCONTINUE THE OXYCODONE. THIS RN RETURNED TO PT'S ROOM TO UPDATE HIM ON THE MEDICATIONS AND PT STATED THAT THIS RN HAD MADE HIM FEEL THAT HE SHOULD NOT HAVE BEEN IN MUCH PAIN HE IS. THIS RN APOLOGIZED AND ASKED PT WHAT SPECIFICIALLY HAD BEEN SAID OR DONE WHICH LED PT TO FEELING THAT THIS RN DID NOT THINK HE SHOULD BE EXPERIENCING MUCH PAIN HE HAS BEEN. PT STATED "WELL, YOU ARE REALLY WORRIED ABOUT MY PAIN". THIS RN ASKED PT SEVERAL CLARIFYING QUESTIONS AND PT STATED "NO ONE ELSE HAS BEEN WORRIED YOU ARE ABOUT MY PAIN". PT INITIALLY STATED THAT HE DID NOT WANT TO START THE METHADONE UNTIL TOMORROW, THEN STATED THAT HE WISHED TO START THE METHADONE TONIGHT. WILL REPORT TO POWDER OPERATOR RN.
[2023-11-07 18:51] VITALS: BP 201/101
--- NOTE | 2023-11-07 19:47 | NUR ---
SHIFT SUMMARY: REVA IS A&OX4. VS WITH ELEVATED BLOOD PRESSURE, DISCUSSED WITH HOSPITALIST WHO ORDERED HYDRALAZINE. PT ASKED IF THIS RN ORDERED THE MEDICATION OR IF THE DOCTOR HAD. REITERATED TO PT THAT NURSES CANNOT ORDER MEDICATIONS. PT ASKED THIS RN "DID YOU TELL THE DOCTOR WHY MY BLOOD PRESSURE IS ELEVATED" AND WAS NOT ALLOWING THIS RN TO ASK OR ANSWER QUESTIONS. ASKED PT REPEATEDLY IF HE WANTED THIS RN TO ADMINISTER THE HYDRALAZINE BEFORE PT STATED THAT HE DID. PT STATED "YOU GUYS AREN'T DOING ANYTHING FOR ME" AND "I CAN DO THIS AT HOME". EDUCATED PT THAT HE HAS THE RIGHT TO LEAVE THE HOSPITAL AT ANY TIME. PT STATED "YOU ARE MAKING ME LIE HERE AND SUFFER". THIS RN FELT COMPELLED TO LEAVE PT'S ROOM AT THAT TIME. PT IS INDEPENDENT IN THE ROOM, HAD A SHOWER TODAY AND SHAVED HIMSELF. DISCUSSED PT'S DIET WITH HOSPITALIST WHO GAVE AN ORDER TO ADVANCE DIET TOLERATED. PT TOLERATED A FULL LIQUID TRAY AT DINNER TIME, APPROX 90% OF THE TRAY WAS CONSUMED. HE REPORTED HAVING HAD A BOWEL MOVEMENT TODAY. HE IS LYING IN BED WITH THE CALL LIGHT IN REACH. REPORT WAS GIVEN TO TOBACCO WETTER NURSE.
[2023-11-07 20:07] VITALS: BP 164/98
[2023-11-08 03:30] VITALS: BP 146/82
--- NOTE | 2023-11-08 06:00 | NUR ---
SHIFT SUMMARY: PT IS ADMITTED FOR PANCREATITIS AND IS A FULL CODE. HE IS ALERT AND ABLE TO MAKE HIS NEEDS KNOWN. UP AD-ELISA WHILE IN ROOM. WAS GIVEN PRN PAIN MANAGEMENT X3 THIS SHIFT. HE WAS REPORTING A LOWER PAIN NUMBER THROUGH THE NIGHT THAN THE NIGHT PREVIOUS. IV TO LEFT FOREARM IS PATENT WITH A DRESSING THAT IS CDI. IT IS INFUSING D5/LR @ 150. AT START OF SHIFT HE REPORTED THAT HE WAS UPSET WITH OFF GOING NURSE AND STATED SHE WAS TO INVASIVE WITH MY PAIN MANAGEMENT. SHE WAS ASKING QUESTIONS THAT SHE DIDN T NEED TO KNOW. SHE IS NOT A DOCTOR. HE ALSO STATED JUST FOR SPITE I DON T WANT ANYTHING FOR PAIN TONIGHT JUST SO I CAN RIP THE DOCTOR A NEW ONE IN THE MORNING. WHEN ASKED FOR MORE DETAIL TO WHY HE WAS UPSET HE STATED THAT NURSE TALKED TO THE DOCTOR AND RESTARTED MY METHADONE. WHEN ASKED ABOUT HIS CURRENT PAIN HE STATED THAT HE WAS IN PAIN BUT DIDN T WANT ANYTHING BECAUSE HE WANTED TO TOUGH IT OUT SO I CAN GO HOME. THIS NURSE INFORMED HIM THAT IF HE WAS IN PAIN PRN MANAGEMENT WAS AVAILABLE HE JUST NEEDED TO ASK.
[2023-11-08 06:59] LABS: BASOPHILS ABSOLUTE AUTO 0.03 K/mm3 (0.00-0.23); BASOPHILS PERCENT AUTO 1 % (0-2); EOSINOPHILS ABSOLUTE AUTO 0.41 K/mm3 (0.00-0.68); EOSINOPHILS PERCENT AUTO 7 % (0-6); Hematocrit 37.9 % (37.0-53.0); Hemoglobin 13.1 g/dL (13.5-17.5); IMMATURE GRAN PERCENT AUTO 0 % (0-1); LYMPHOCYTES PERCENT AUTO 20 % (21-46); MONOCYTES ABSOLUTE AUTO 0.76 K/mm3 (0.16-1.47); MONOCYTES PERCENT AUTO 13 % (4-13); Mean Corpuscular HGB 31.4 pg (26.0-34.0); Mean Corpuscular HGB Conc 34.6 g/dL (31.5-36.5); Mean Corpuscular Volume 91 fL (80-100); Mean Platelet Volume 10.3 fL (9.1-12.4); NEUTROPHILS ABSOLUTE AUTO 3.57 K/mm3 (1.96-9.15); NEUTROPHILS PERCENT AUTO 60 % (41-73); Platelet Count 188 K/mm3 (150-400); RDW Coefficient Variation 11.9 % (11.7-14.2); RDW Standard Deviation 39.8 fL (35.1-46.3); Red Blood Cell Count 4.17 M/mm3 (4.30-5.90); White Blood Cell Count 5.97 K/mm3 (4.00-11.30)
[2023-11-08 07:11] LABS: Albumin, Blood 2.8 g/dL (3.4-5.0); Albumin/Globulin Ratio 0.8 (0.8-1.8); Bilirubin, Total 0.7 mg/dL (0.1-1.0); Bun/Creatinine Ratio 8.5 (12.0-20.0); Calcium, Blood 8.7 mg/dL (8.5-10.1); Creatinine, Blood 0.83 mg/dL (0.60-1.20); Globulin, Blood 3.6 g/dL (2.2-4.0); Potassium, Blood 3.9 mmol/L (3.5-5.5); Total Protein, Blood 6.4 g/dL (6.4-8.2)
[2023-11-08 07:40] VITALS: BP 155/78
[2023-11-08 15:44] VITALS: BP 152/82
--- NOTE | 2023-11-08 18:17 | NUR ---
DISCHARGE SUMMARY PATIENT ADVANCING DIET TODAY PER DR SORIANO, STATES HE HAS SOME PAIN WITH EATING AND MEDICATED ONCE FOR ABDOMINAL PAIN. PATIENT REQUESTED TO LEAVE AND DR ESTRELLA PLACED ORDERS FOR DISCHARGE. JAZLYN REMOVED IV, PATIENT MEDICATION AND EDUCATION PACKET PRINTED AND SIGNED BY PATIENT, EDUCATION PROVIDED VERBALY. PATIENT AMULATED OUT OF UNIT AT 1520 AFTER SIGNING PAPERS. MEETING PATIENT DOWNSTAIRS TO LEAVE [employer]IVATE [employer]ICHLE.
== END 2023-11-08 17:43 | disposition home or self-care (01) | DRG 440 ==
LOC: ER 18:55 → MEDS 11-03 02:18
PROVIDERS: Internal Medicine; Student in an Organized Health Care Education/Training Program; ADMIT Internal Medicine
DX: K85.90 Acute pancreatitis without necrosis or infection, unspecified (principal); J45.909 Unspecified asthma, uncomplicated; G89.29 Other chronic pain; N40.0 Benign prostatic hyperplasia without lower urinary tract symptoms; G62.9 Polyneuropathy, unspecified; R74.01 Elevation of levels of liver transaminase levels; E80.6 Other disorders of bilirubin metabolism; M35.3 Polymyalgia rheumatica; E03.9 Hypothyroidism, unspecified; E29.1 Testicular hypofunction; I10 Essential (primary) hypertension; J44.9 Chronic obstructive pulmonary disease, unspecified; F11.90 Opioid use, unspecified, uncomplicated; Z88.0 Allergy status to penicillin; Z91.041 Radiographic dye allergy status; Z88.6 Allergy status to analgesic agent; Z87.891 Personal history of nicotine dependence; Z90.49 Acquired absence of other specified parts of digestive tract; Z79.890 Hormone replacement therapy
CPT/HCPCS: 36415; 74177; 74181; 74183; 80053; 80061; 80074; 81001; 82248; 83690; 83880; 84484; 85025; 87086; 93005; 93010; 94640; 94664; 94760; 96361; 96374; 96375; 99285-25; A9270; C9113; J0360; J1170; J1200; J1650; J1885; J2060; J2270; J2405; J2765; J3010; J7030; J7120; J7121; Q9967